=== PATIENT | male | born 1985 | race Caucasian/White ===

== ENCOUNTER 2024-06-22 15:17 | Emergency (ER) | payer OTHER ==
[~2024-06-22] VITALS: Ht 170.2 cm; Wt 90.7 kg
[2024-06-22 15:31] VITALS: BP_SYST 148; PULSE 90; RESP 17; TEMP 97.9; O2SAT 98
[2024-06-22] MEDS: BACITRACIN 1 GM OINT TP ONE (16:05)
[2024-06-22 16:32] VITALS: BP_SYST 148; PULSE 90; RESP 17; TEMP 97.9; O2SAT 98
== END 2024-06-22 16:31 | disposition home or self-care (01) ==
LOC: SED 15:17
DX: S51.812A Laceration without foreign body of left forearm, initial encounter (principal); W26.8XXA Contact with other sharp object(s), not elsewhere classified, initial encounter; Y93.89 Activity, other specified; Y92.89 Other specified places as the place of occurrence of the external cause; Y99.8 Other external cause status
CPT/HCPCS: 99282